=== PATIENT | female | born 1960 | race Caucasian/White ===

== ENCOUNTER → 2024-02-07 | Outpatient (REF) | payer OTHER | LOC: M LAB REF 17:13 | PROVIDERS: ATTEND Internal Medicine Gastroenterology | DX: A09 Infectious gastroenteritis and colitis, unspecified (principal); K86.81 Exocrine pancreatic insufficiency ==

== ENCOUNTER 2024-07-29 07:24 | Day surgery (SDC) | payer OTHER ==
[~2024-07-29] VITALS: Ht 162.6 cm; Wt 72.1 kg
[~2024-07-29 07:24] MED LIST: B-12100010 PO; BIOT1CAP2 PO; CALC1TAB30 PO; CARI1TAB7 PO; CITA20TA6 PO; CREO3600 PO; D31000CA4 PO; LIDOCAINE 2% 100MG/5ML SDV (FOR ANES.) As Ordered ONE; LORA-1041 PO; LOSA100T46 PO; NS 250 ML IV ONE; OMEP-173 PO; RA N1TAB PO; THERTAB52 PO; VITA500C24 PO; propofoL 200 MG/20 ML VIAL As Ordered ONE
[2024-07-29 10:09] VITALS: TEMP 97.9
[2024-07-29 10:32] VITALS: BP 147/70; O2SAT 99
== END 2024-07-29 10:40 | disposition home or self-care (01) ==
LOC: M OPP 07:24
PROVIDERS: ATTEND Internal Medicine Gastroenterology
DX: R19.7 Diarrhea, unspecified (principal); K63.89 Other specified diseases of intestine; K57.30 Diverticulosis of large intestine without perforation or abscess without bleeding; Q43.8 Other specified congenital malformations of intestine; Z98.84 Bariatric surgery status; G47.30 Sleep apnea, unspecified; I10 Essential (primary) hypertension; Z79.899 Other long term (current) drug therapy; Z90.710 Acquired absence of both cervix and uterus; F17.210 Nicotine dependence, cigarettes, uncomplicated; Z88.8 Allergy status to other drugs, medicaments and biological substances; Z91.048 Other nonmedicinal substance allergy status

== ENCOUNTER 2025-04-08 08:24 | Day surgery (SDC) | payer OTHER ==
[~2025-04-08] VITALS: Ht 162.6 cm; Wt 71.2 kg
[~2025-04-08 08:24] MED LIST changes: +CARI-555 PO; -CARI1TAB7 PO; -LIDOCAINE 2% 100MG/5ML SDV (FOR ANES.) As Ordered ONE; -NS 250 ML IV ONE; -propofoL 200 MG/20 ML VIAL As Ordered ONE
[2025-04-08] MEDS ORDERED: LIDOCAINE 2% 100 MG/5 ML SDV (FOR ANES.) As Ordered ONE (10:30)
[2025-04-08] MEDS ORDERED: GLYCOPYRROLATE INJ 0.2 MG/ML 2 ML VIAL As Ordered ONE (10:30)
[2025-04-08 12:16] VITALS: BP 151/72; O2SAT 96
== END 2025-04-08 13:04 | disposition home or self-care (01) ==
LOC: M OPP 08:24
PROVIDERS: ATTEND Internal Medicine Gastroenterology
DX: K52.9 Noninfective gastroenteritis and colitis, unspecified (principal); K56.699 Other intestinal obstruction unspecified as to partial versus complete obstruction; Q43.8 Other specified congenital malformations of intestine; K64.8 Other hemorrhoids; R93.3 Abnormal findings on diagnostic imaging of other parts of digestive tract; R10.31 Right lower quadrant pain; G47.30 Sleep apnea, unspecified; Z88.8 Allergy status to other drugs, medicaments and biological substances; Z91.048 Other nonmedicinal substance allergy status; Z79.899 Other long term (current) drug therapy; F17.210 Nicotine dependence, cigarettes, uncomplicated; Z98.84 Bariatric surgery status
CPT/HCPCS: 45380; 74176; 88305; J1596

== ENCOUNTER 2025-05-21 15:41 | Outpatient (CLI) | payer OTHER ==
[~2025-05-21] VITALS: Ht 162.6 cm; Wt 70.0 kg
[~2025-05-21 15:41] MED LIST changes: +BUDE3CAP; +DICY-61; +METO1TAB32
[2025-05-21 16:00] VITALS: BP 137/66; O2SAT 98
[2025-05-21] MEDS: VEDOLIZUMAB 300 MG in NS 250 ML IV ONE (16:31)
[2025-05-21 17:30] VITALS: BP 142/62; TEMP 36.6; O2SAT 98
== END 2025-05-21 17:30 | disposition home or self-care (01) ==
LOC: M INFU 15:41
PROVIDERS: ATTEND Internal Medicine Gastroenterology
DX: K50.018 Crohn's disease of small intestine with other complication (principal); Z88.8 Allergy status to other drugs, medicaments and biological substances; Z91.048 Other nonmedicinal substance allergy status
CPT/HCPCS: 96365; J3380

== ENCOUNTER 2025-06-04 03:00 | Outpatient (CLI) | payer OTHER ==
[~2025-06-04] VITALS: Ht 162.6 cm; Wt 72.0 kg
[2025-06-04 15:54] VITALS: BP 128/73; O2SAT 97
[2025-06-04] MEDS: VEDOLIZUMAB 300 MG in NS 250 ML IV ONE (16:21)
[2025-06-04 17:02] VITALS: BP 114/68; O2SAT 97
== END 2025-06-04 17:00 ==
LOC: M INFU 03:00
PROVIDERS: ATTEND Internal Medicine Gastroenterology
DX: K50.018 Crohn's disease of small intestine with other complication (principal); Z88.8 Allergy status to other drugs, medicaments and biological substances; Z91.09 Other allergy status, other than to drugs and biological substances
CPT/HCPCS: 96365; J3380

== ENCOUNTER → 2025-07-22 | Outpatient (CLI) | payer OTHER ==
[~2025-07-22] VITALS: Ht 162.6 cm; Wt 70.5 kg
[~2025-07-22] MED LIST changes: +VEDOLIZUMAB 300 MG in NS 250 ML IV ONE
[2025-07-22 15:20] VITALS: BP 115/61; O2SAT 98
[2025-07-22] MEDS: VEDOLIZUMAB 300 MG in NS 250 ML IV ONE (16:20)
[2025-07-22 16:59] VITALS: BP 109/62; O2SAT 96
== END ==
LOC: M INFU 13:52
PROVIDERS: ATTEND Internal Medicine Gastroenterology
DX: K50.018 Crohn's disease of small intestine with other complication (principal); Z88.8 Allergy status to other drugs, medicaments and biological substances; Z91.048 Other nonmedicinal substance allergy status
CPT/HCPCS: 96365; J3380

== ENCOUNTER → 2025-07-29 | Outpatient (CLI) | payer OTHER ==
[~2025-07-29] MED LIST changes: +LIDOCAINE 1% MDV 20 ML VIAL SC SCH; +LIDOCAINE 1% MDV 20 ML VIAL SC STA; -VEDOLIZUMAB 300 MG in NS 250 ML IV ONE
[2025-07-29 08:37] VITALS: TEMP 98.3
[2025-07-29 09:17] LABS: BASO # 0.1 10^3/uL (0.0-0.2); BASO % 0.5 % (0.0-1.0); EOS # 0.1 10^3/uL (0.0-0.5); EOS % 1.2 % (0.0-3.0); LYMPH # 4.4 10^3/uL (1.5-5.0); LYMPH % 38.2 % (24.0-44.0); MONO # 0.7 10^3/uL (0.0-0.8); MONO % 5.9 % (2.0-8.0); NEUTROPHILS # 6.2 10^3/uL (1.5-8.5); NEUTROPHILS % 53.8 % (36.0-66.0); PLATELET COUNT, AUTOMATED 279 10^3/uL (150-450)
[2025-07-29 09:35] VITALS: BP 168/77; O2SAT 98
== END ==
LOC: M IRPRO 08:25
PROVIDERS: ATTEND Specialist
DX: R93.89 Abnormal findings on diagnostic imaging of other specified body structures (principal)

== ENCOUNTER 2025-09-16 16:20 | Outpatient (CLI) | payer OTHER ==
[~2025-09-16] VITALS: Ht 162.6 cm; Wt 72.7 kg
[~2025-09-16 16:20] MED LIST changes: -LIDOCAINE 1% MDV 20 ML VIAL SC SCH; -LIDOCAINE 1% MDV 20 ML VIAL SC STA
[2025-09-16] MEDS: VEDOLIZUMAB 300 MG in NS 250 ML IV ONE (16:40)
[2025-09-16 17:24] VITALS: BP 141/73; O2SAT 98
== END 2025-09-16 17:25 ==
LOC: M INFU 16:20
PROVIDERS: ATTEND Internal Medicine Gastroenterology
DX: K50.018 Crohn's disease of small intestine with other complication (principal); Z88.8 Allergy status to other drugs, medicaments and biological substances; Z91.09 Other allergy status, other than to drugs and biological substances
CPT/HCPCS: 96365; J3380